=== PATIENT | female | born 1985 | race Caucasian/White ===

== ENCOUNTER 2019-02-05 23:33 | Outpatient (CLI) | payer OTHER ==
[2019-02-06] MEDS ORDERED: LACTATED RINGERS 1,000 ML ONE (00:09)
[2019-02-06 00:21] VITALS: BP 130/83
[2019-02-06] MEDS ORDERED: VISTARIL PO ONE (00:36)
[2019-02-06] MEDS ORDERED: LACTATED RINGERS 1,000 ML IV ONE (01:50)
== END 2019-02-06 00:50 | disposition home or self-care (01) ==
LOC: TRG 23:33
PROVIDERS: ATTEND Obstetrics & Gynecology
DX: O62.9 Abnormality of forces of labor, unspecified (principal); O99.343 Other mental disorders complicating pregnancy, third trimester; F32.9 Major depressive disorder, single episode, unspecified; Z3A.39 39 weeks gestation of pregnancy
CPT/HCPCS: 59025; J7120; Q0177